=== PATIENT | female | born 1970 ===

== ENCOUNTER 2018-04-27 06:03 | Inpatient (IN) | payer MEDICARE, OTHER ==
[2018-04-27] VITALS (13 sets, daily range): BP systolic 87–131; BP diastolic 58–89
[~2018-04-27] VITALS: Ht 152.4 cm; Wt 50.3 kg
[~2018-04-27 06:03] MED LIST: Bacitracin 50000 Units Vial ONE; NeoSporin Gu Irrig 1ml Amp IRRIG ONE
[2018-04-27] MEDS ORDERED: TRAMADOL HCL50 MG ORAL (06:52)
[2018-04-27 06:59] LABS: ANION GAP 7 mmol/L (5-15); BLOOD UREA NITROGEN 13 mg/dL (7-18); CALCIUM 9.4 MG/DL (8.5-10.1); CARBON DIOXIDE 28 MMOL/L (21-32); CHLORIDE 102 MMOL/L (98-107); CREATININE 0.7 MG/DL (0.55-1.30); POTASSIUM 3.7 MMOL/L (3.5-5.1); SODIUM 137 MMOL/L (136-145)
[2018-04-27] MEDS ORDERED: Lidocaine 1% MPF 10mg/ml 5ml ONE (07:05)
[2018-04-27] MEDS ORDERED: Ropivacaine 5mg/ml Vial 30ml INJ ONE (07:05)
[2018-04-27] MEDS ORDERED: Propofol 200mg/20ml IV ONE (07:05)
[2018-04-27 07:10] LABS: EOSINOPHILS % (AUTO) 2.2 % (0.0-3.0); HEMATOCRIT 38.6 % (37.0-47.0); HEMOGLOBIN 13.5 G/DL (12.0-16.0); LYMPHOCYTES % (AUTO) 50.7 % (20.0-45.0); MEAN CORPUSCULAR VOLUME 81 FL (80-99); MONOCYTES % (AUTO) 6.6 % (1.0-10.0); NEUTROPHILS % (AUTO) 39.5 % (45.0-75.0); PLATELET COUNT 331 K/UL (150-450); RED BLOOD COUNT 4.73 M/UL (4.20-5.40); RED CELL DISTRIBUTION WIDTH 11.1 % (11.6-14.8); WHITE BLOOD COUNT 9.6 K/UL (4.8-10.8)
[2018-04-27] MEDS ORDERED: Midazolam 2mg/2ml Inj ONE (07:11)
[2018-04-27] MEDS ORDERED: fentaNYL 100 mcg/2 mL IV ONE (07:11)
[2018-04-27] MEDS ORDERED: Sterile Water Irrig 1000ml IRRIG ONE (08:00)
[2018-04-27] MEDS ORDERED: NS Irrig 1000ml ONE (08:00)
[2018-04-27] MEDS ORDERED: Ketorolac 30mg Inj ONE (08:00)
[2018-04-27] MEDS ORDERED: NS Irrig 2000ml IRRIG ONE (08:00)
[2018-04-27] MEDS ORDERED: LR 1000ml ONE (08:00)
[2018-04-27] MEDS ORDERED: Bupivacaine 0.5% Inj 30 ml vial INJ ONE (08:01)
--- NOTE | 2018-04-27 08:04 | Pre-Procedure Note/Attestation ---
Pre-Procedure Note/Attestation Complete Prior to Procedure Planned Procedure: left Procedure Narrative: left knee revision Indications for Procedure Pre-Operative Diagnosis: failed left knee Attestation I attest that I discussed the nature of the procedure; its benefits; risks and complications; and alternatives (and the risks and benefits of such alternatives ), prior to the procedure, with the patient (or the patient's legal traffic workforce representative). I attest that, if there was a reasonable possibility of needing a blood transfusion, the patient (or the patient's legal traffic workforce representative) was given the [facility] standardized written summary, pursuant to the [employer] Blood Safety Act ([place] Health and Safety Code # 1645, as amended). I attest that I re-evaluated the patient just prior to the surgery and that there has been no change in the patient's H&P, except as documented below: Randall Barboza MD Apr 27, 2018 08:04
[2018-04-27] MEDS ORDERED: Tranexamic Acid(Epistaxis Use) TOPIC ONE (08:30)
[2018-04-27] MEDS ORDERED: Tranexamic Acid 1,000 MG in NS 55 ML IVPB ONE (08:30)
--- NOTE | 2018-04-27 08:41 | General Progress Note ---
Progress Note Progress Note D?W PATIENT PLAN READY TO DO REVSION EXPAINED IF COMPONENTS LOOK GOOD MAY DO LINER EXCHANGE AND DEE WILL RULE OUT INFECTION INTRAOP WITH GRAL STAIN CULTURE PATIENT PREOP CLAIMS NERVE PAIN TO FOOT SINCE FIRST SURGERY EXPLAINED SURGERY AND RISKS INFECTION BLEEDING ANESTHETIC RISKS DVT PE FAILURE OF SURGERY FRACTURE NEUROVASCULAR DAMAGE PATIENT AGREED AND CONSENTED Randall Barboza MD Apr 27, 2018 08:41
[2018-04-27] MEDS ORDERED: ePHEDrine 50mg/ml Inj ONE (09:08)
[2018-04-27] MEDS ORDERED: Sodium Chloride 10ml vial INJ ONE ×2 (09:09→09:47)
[2018-04-27] MEDS ORDERED: LR 1000ml 1,000 ML IVLG SCH (09:38)
--- NOTE | 2018-04-27 09:38 | Anethesia Preoperative Eval ---
Anesthesia Pre-op PMH/ROS General Date of Evaluation: Apr 27, 2018 Time of Evaluation: 07:28 Anesthesiologist: Nando ASA Score: ASA 2 Mallampati Score Class I : Soft palate, uvula, fauces, pillars visible Class II: Soft palate, uvula, fauces visible Class III: Soft palate, base of uvula visible Class IV: Only hard plate visible Mallampati Classification: Class II Surgeon: Jabari Diagnosis: L knee malfunctioning arthroplasty, chronic pain Surgical Procedure: Revision of L TKA Anesthesia History: none Family History: no anesthesia problems Allergies: Coded Allergies: PENICILLINS (Verified Allergy, Unknown, 04/26/18) Medications: see eMAR Patient NPO?: Yes NPO Date: Apr 26, 2018 NPO Time: 2229 Past Medical History Cardiovascular: Denies: HTN, CAD, AK, valve dz, arrhythmia, other Pulmonary: Denies: asthma, COPD, CHERRY, other Gastrointestinal/Genitourinary: Reports: GERD - mild; Denies: CRI, ESRD, other Neurologic/Psychiatric: Reports: depression/anxiety, other - chronic pain; Denies: dementia, CVA, TIA Endocrine: Denies: DM, hypothyroidism, steroids, other HEENT: Denies: cataract (L), cataract (R), glaucoma, EMMONAK (L), EMMONAK (R), other Hematology/Immune: Denies: anemia, DVT, bleeding disorder, other Musculoskeletal/Integumentary: 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 Exam Physician Exam Last Vital Signs Date Time Temp Pulse Resp B/P (MAP) Pulse Ox O2 Delivery O2 Flow Rate FiO2 04/27/18 07:11 Room Air 04/27/18 06:36 97.5 67 18 131/85 (100) 100 Constitutional: NAD Neurologic: CN 2-12 intact Cardiovascular: RRR, no M/R/G Respiratory: CTA Gastrointestinal: S/NT/ND Airway Exam Mallampati Score: Class II MO: full Neck: flexible ROM: limited Teeth: intact Dentures: no upper, no lower Anesthesia Pre-op A/P Labs Hematology Test 04/27/18 06:30 White Blood Count 9.6 K/UL (4.8-10.8) Red Blood Count 4.73 M/UL (4.20-5.40) Hemoglobin 13.5 G/DL (12.0-16.0) Hematocrit 38.6 % (37.0-47.0) Mean Corpuscular Volume 81 FL (80-99) Mean Corpuscular Hemoglobin 28.5 PG (27.0-31.0) Mean Corpuscular Hemoglobin Concent 34.9 G/DL (32.0-36.0) Red Cell Distribution Width 11.1 % (11.6-14.8) L Platelet Count 331 K/UL (150-450) Mean Platelet Volume 7.2 FL (6.5-10.1) Neutrophils (%) (Auto) 39.5 % (45.0-75.0) L Lymphocytes (%) (Auto) 50.7 % (20.0-45.0) H Monocytes (%) (Auto) 6.6 % (1.0-10.0) Eosinophils (%) (Auto) 2.2 % (0.0-3.0) Basophils (%) (Auto) 1.0 % (0.0-2.0) Coagulation Test 04/27/18 06:30 Prothrombin Time 10.2 SEC (9.30-11.50) Prothromb Time International Ratio 1.0 (0.9-1.1) Activated Partial Thromboplast Time 28 SEC (23-33) Chemistry Test 04/27/18 06:30 Sodium Level 137 MMOL/L (136-145) Potassium Level 3.7 MMOL/L (3.5-5.1) Chloride Level 102 MMOL/L (98-107) Carbon Dioxide Level 28 MMOL/L (21-32) Anion Gap 7 mmol/L (5-15) Blood Urea Nitrogen 13 mg/dL (7-18) Creatinine 0.7 MG/DL (0.55-1.30) Estimat Glomerular Filtration Rate > 60 mL/min (>60) Glucose Level 92 MG/DL (74-106) Calcium Level 9.4 MG/DL (8.5-10.1) Urine Test Test 04/27/18 06:20 Urine HCG, Qualitative Negative (NEGATIVE) Studies Pre-op Studies: EKG - NSR Risk Assessment & Plan Assessment: ASA 2 Plan: All possible anesthetic options for this kind of surgery were discussed with patient in preop holding area and all related questions answered. Patient agreed and consented for following anesthetic plan: L femoral nerve block for postoperative pain control, SAB and GA with LMA for surgery, all invasive manipulations like nerve block and SAB will be done under moderate sedation with appropriate monitoring. Status Change Before Surgery: No Pre-Antibiotics Drug: Vancomycin 500 mg Given Within 1 Hr of Incision: Yes Time Given: 09:02 Abdi Collier MD Apr 27, 2018 09:38
[2018-04-27] MEDS ORDERED: Meperidine 50mg/ml Inj(FOR RIGORS ONLY) IV PRN (09:45)
[2018-04-27] MEDS ORDERED: DiphenhydrAMINE 50mg/ml Inj IVP PRN (09:45)
[2018-04-27] MEDS ORDERED: Midazolam 2mg/2ml Inj IVP PRN (09:45)
[2018-04-27] MEDS ORDERED: Ketorolac 30mg Inj IV PRN (09:45)
[2018-04-27] MEDS ORDERED: Morphine Sulfate 10mg/ml Inj ONE (09:45)
[2018-04-27] MEDS ORDERED: Metoclopramide 10mg/2ml Inj IVP PRN (09:45)
--- NOTE | 2018-04-27 10:39 | Diagnostic Imaging Report ---
Indication: Knee Pain 3 views of the left knee were obtained. Findings: Total knee arthroplasty demonstrated. The bones are osteopenic. Alignment and position appear unremarkable. There is no fracture. IMPRESSION: Left total knee arthroplasty noted
--- NOTE | 2018-04-27 11:33 | Immediate Post-Op Evaluation ---
Immediate Post-Op Evalulation Immediate Post-Op Evalulation Procedure: Revision of L TKA Date of Evaluation: Apr 27, 2018 Time of Evaluation: 11:32 IV Fluids: 2000 Blood Products: none Estimated Blood Loss: 150 Urinary Output: 560 Blood Pressure Systolic: 108 Blood Pressure Diastolic: 62 Pulse Rate: 76 Respiratory Rate: 20 O2 Sat by Pulse Oximetry: 99 Temperature (Fahrenheit): 97.4 Pain Score (1-10): 1 Nausea: No Vomiting: No Complications none Patient Status: reacts, patent, none Hydration Status: adequate Abdi Collier MD Apr 27, 2018 11:33
[2018-04-27] MEDS ORDERED: HYDROmorphone 1mg/ml Carpuject SUBQ PRN (13:00)
[2018-04-27] MEDS ORDERED: oxyCODONE 5mg IR tab ORAL PRN (13:00)
[2018-04-27] MEDS ORDERED: Morphine Sulfate 4mg/ml Inj (IV/IM USE ONLY) IM PRN (13:00)
--- NOTE | 2018-04-27 13:27 | Cardiology Progress Note ---
Assessment/Plan Assessment/Plan full note dictated dvt ppx [id number] Objective Last 24 Hour Vital Signs Date Time Temp Pulse Resp B/P (MAP) Pulse Ox O2 Delivery O2 Flow Rate FiO2 04/27/18 12:18 89 18 107/69 100 Nasal Cannula 3 04/27/18 12:13 94 18 106/71 100 Nasal Cannula 3 04/27/18 12:00 89 18 107/81 100 Nasal Cannula 3 04/27/18 11:45 89 15 97/84 100 Nasal Cannula 3 04/27/18 11:35 99 18 99/62 100 Simple Mask 6 04/27/18 11:33 76 20 99 04/27/18 11:26 97.3 102 20 108/74 100 Simple Mask 6 04/27/18 07:11 Room Air 04/27/18 06:36 97.5 67 18 131/85 (100) 100 Intake and Output 04/26/18 04/27/18 19:00 07:00 # Voids 1 Laboratory Tests Test 04/27/18 06:20 04/27/18 06:30 Urine HCG, Qualitative Negative (NEGATIVE) White Blood Count 9.6 K/UL (4.8-10.8) Red Blood Count 4.73 M/UL (4.20-5.40) Hemoglobin 13.5 G/DL (12.0-16.0) Hematocrit 38.6 % (37.0-47.0) Mean Corpuscular Volume 81 FL (80-99) Mean Corpuscular Hemoglobin 28.5 PG (27.0-31.0) Mean Corpuscular Hemoglobin Concent 34.9 G/DL (32.0-36.0) Red Cell Distribution Width 11.1 % (11.6-14.8) L Platelet Count 331 K/UL (150-450) Mean Platelet Volume 7.2 FL (6.5-10.1) Neutrophils (%) (Auto) 39.5 % (45.0-75.0) L Lymphocytes (%) (Auto) 50.7 % (20.0-45.0) H Monocytes (%) (Auto) 6.6 % (1.0-10.0) Eosinophils (%) (Auto) 2.2 % (0.0-3.0) Basophils (%) (Auto) 1.0 % (0.0-2.0) Prothrombin Time 10.2 SEC (9.30-11.50) Prothromb Time International Ratio 1.0 (0.9-1.1) Activated Partial Thromboplast Time 28 SEC (23-33) Sodium Level 137 MMOL/L (136-145) Potassium Level 3.7 MMOL/L (3.5-5.1) Chloride Level 102 MMOL/L (98-107) Carbon Dioxide Level 28 MMOL/L (21-32) Anion Gap 7 mmol/L (5-15) Blood Urea Nitrogen 13 mg/dL (7-18) Creatinine 0.7 MG/DL (0.55-1.30) Estimat Glomerular Filtration Rate > 60 mL/min (>60) Glucose Level 92 MG/DL (74-106) Calcium Level 9.4 MG/DL (8.5-10.1) Hero Perez MD Apr 27, 2018 13:27
[2018-04-27] MEDS: traMADol 50mg tab ORAL SCH ×2 (14:00→21:33)
[2018-04-27] MEDS ORDERED: Clindamycin 600mg 50 ML IV SCH (14:00)
[2018-04-27] MEDS: Hydromorphone 0.5mg/0.5ml inj IVP PRN ×3 (14:25→23:31)
[2018-04-27] MEDS: D5 1/2NS w/KCl 20mEq 1,000 ML IV SCH (14:27)
[2018-04-27] MEDS: Clindamycin 600mg 50 ML IV SCH ×2 (15:01→20:34)
[2018-04-27] MEDS: Morphine Sulfate 4mg/ml Inj (IV/IM USE ONLY) IV PRN ×2 (16:00→19:25)
[2018-04-27] MEDS: oxyCODONE 5mg IR tab ORAL PRN ×2 (17:04→20:34)
--- NOTE | 2018-04-27 19:15 | Consultation ---
DATE OF CONSULTATION: 04/27/2018 REASON FOR EVALUATION: Postoperative medical care. HISTORY OF PRESENT ILLNESS: This is a middle-aged female, who has undergone left knee surgery by Dr. Maria. The patient is being seeing postoperatively. She really does not have any chest pain or shortness of breath but she does have throat dryness and minimal dizziness. No nausea or vomiting. No palpitations. PAST MEDICAL HISTORY: Fairly unremarkable. PAST SURGICAL HISTORY: She has had knee surgery in 2015 initially. ALLERGIES: She is allergic to penicillin that causes to have rash. SOCIAL HISTORY: Never smoked, drank, or use drugs. Not . No kids. 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 FAMILY HISTORY: Negative for premature coronary artery disease. REVIEW OF SYSTEMS: GASTROINTESTINAL: Denies any nausea, vomiting, not had bowel movement yet. GENITOURINARY: Negative. CONSTITUTIONAL: She denies. PHYSICAL EXAMINATION: GENERAL: Shows to be middle-aged female, in no respiratory distress. NECK: Supple. No jugular venous distention. LUNGS: Clear to auscultation and percussion. CARDIAC: S1 is normal. S2 is normal. Regular rate and rhythm. No heaves, thrills, or gallops noted. ABDOMEN: Soft, nontender. Positive bowel sounds. EXTREMITIES: There is no clubbing, cyanosis, nor edema. The patient has pneumatic compression stockings in the right leg and left leg. LABORATORY AND DIAGNOSTIC DATA: Laboratory values none postop. All labs available are preop that was performed elsewhere. The patient's white count was 18, hemoglobin 13, and platelet count of 293. Glucose of 90, creatinine 0.7, sodium 139, potassium 4.3. Liver function tests were normal. Total cholesterol 259 with LDL of 177 and HDL of 59. ASSESSMENT AND PLAN: Status post revision knee surgery. The patient postoperatively is doing well. We will monitor for DVT prophylaxis with pneumatic compression stockings and low molecular weight heparin as okayed by Dr. Pedroza. We will start diet when she is adjusted per postoperative protocol for knee surgery. Incentive spirometer as indicated and pain management will be provided. Blood pressure will be monitored. So for her vital signs postoperatively appears to be adequate. Hero Perez M.D. DR: Servando JOB#: [id number] CC:
[2018-04-28] VITALS: BP 96/69
[2018-04-28] MEDS: Clindamycin 600mg 50 ML IV SCH ×2 (02:13→08:02)
[2018-04-28] MEDS: Morphine Sulfate 4mg/ml Inj (IV/IM USE ONLY) IV PRN ×4 (02:13→20:38)
[2018-04-28] MEDS: D5 1/2NS w/KCl 20mEq 1,000 ML IV SCH ×2 (02:21→16:06)
[2018-04-28 04:00] VITALS: BP 90/58
[2018-04-28] MEDS: Hydromorphone 0.5mg/0.5ml inj IVP PRN (04:45)
[2018-04-28] MEDS: traMADol 50mg tab ORAL SCH ×3 (06:03→21:56)
[2018-04-28] MEDS: oxyCODONE 5mg IR tab ORAL PRN ×4 (07:57→23:48)
[2018-04-28 08:00] VITALS: BP 131/73
[2018-04-28] MEDS: Enoxaparin 40mg Inj SUBQ SCH (09:00)
[2018-04-28 09:13] LABS: INR 1.1 (0.9-1.1)
[2018-04-28 09:17] LABS: BASOPHILS % (AUTO) 0.4 % (0.0-2.0); EOSINOPHILS % (AUTO) 0.2 % (0.0-3.0); HEMATOCRIT 28.7 % (37.0-47.0); HEMOGLOBIN 9.7 G/DL (12.0-16.0); LYMPHOCYTES % (AUTO) 13.4 % (20.0-45.0); MEAN CORPUSCULAR VOLUME 83 FL (80-99); MONOCYTES % (AUTO) 13.2 % (1.0-10.0); NEUTROPHILS % (AUTO) 72.9 % (45.0-75.0); PLATELET COUNT 213 K/UL (150-450); RED BLOOD COUNT 3.45 M/UL (4.20-5.40); RED CELL DISTRIBUTION WIDTH 11.1 % (11.6-14.8); WHITE BLOOD COUNT 9.1 K/UL (4.8-10.8)
--- NOTE | 2018-04-28 09:38 | 48 Hour Post Anesthesia Eval ---
Post Anesthesia Evaluation Procedure: Revision of L TKA Date of Evaluation: Apr 28, 2018 Time of Evaluation: 09:37 Blood Pressure Systolic: 98 0: 56 Pulse Rate: 72 Respiratory Rate: 20 Temperature (Fahrenheit): 97.6 O2 Sat by Pulse Oximetry: 98 Airway: patent Nausea: No Vomiting: No Pain Intensity: 4 Hydration Status: adequate Cardiopulmonary Status: stable Mental Status/LOC: patient returned to baseline Follow-up Care/Observations: n/a Post-Anesthesia Complications: none Follow-up care needed: N/A Abdi Collier MD Apr 28, 2018 09:38
[2018-04-28 12:23] VITALS: BP 119/75
[2018-04-28 16:00] VITALS: BP 119/78
[2018-04-28] MEDS ORDERED: Tubing IV Secondary IV ONE (17:02)
--- NOTE | 2018-04-28 19:30 | Consultation ---
DATE OF CONSULTATION: 04/28/2018 CONSULTING PHYSICIAN: Juan Ramon Olivas M.D. REFERRING PHYSICIAN: Randall Barboza M.D. REASON FOR CONSULTATION: Acute pain consult. HISTORY OF PRESENT ILLNESS: Dear Dr. Kruger: Thank you kindly for consulting me to evaluate and render an opinion as to how to proceed in the management of the patient's acute postoperative left knee pain status post left total knee arthroplasty revision surgery. The patient underwent revision surgery yesterday and complained of severe postoperative pain. She failed multiple trials of standard pain medications and you have consulted me to help with her pain control, which was refractory to standard postoperative pain medication recommendations. I saw the patient at the bedside. I performed a detailed history and physical examination. I discussed the case with the hospital pharmacist, So along with multiple nursing staff and devised the following analgesic plan to help this patient improve the pain complaints and advance with physical therapy. I reviewed the medical record in detail. PAST MEDICAL HISTORY: 1. Acute postoperative left knee pain status post revision left total knee arthroplasty by Dr. Barboza in April 2018. 2. Insomnia. PAST SURGICAL HISTORY: Previous knee surgery in 2015 and appendectomy. ALLERGIES: Penicillin causes a rash. MEDICATIONS AT HOME: Tramadol 50 mg b.i.d. p.r.n. SOCIAL HISTORY: Negative. REVIEW OF SYSTEMS: Per Dr. Perez. PHYSICAL EXAMINATION: VITAL SIGNS: Age 47, height 5 feet 0 inches, and weight 116 pounds. Body mass index 23. VITAL SIGNS: In the medical record. HEENT: Normocephalic and atraumatic. CHEST: Clear to auscultation. HEART: Regular rate and rhythm. ABDOMEN: Soft. EXTREMITIES: Left knee significant pain with range of motion. Left knee dressing appears clean and dry. NEUROLOGIC: Moving all extremities x4. Moving all toes x10. Detailed neurologic exam per Dr. Dayami Barboza. DIAGNOSTIC TESTING: Shows laboratory studies preoperatively from November 11, 2017 shows white count 8, hematocrit 39, and platelets 293,000. Sodium 139, potassium 4.2, chloride 102, bicarb 27, glucose 90, BUN 11, creatinine 0.7, and calcium 9.8. Total protein 7.1. Albumin 4.4. Total bilirubin 0.5. Alkaline phosphatase 62, AST 18, and ALT 10. TSH low normal. Preoperative 12-lead EKG shows normal sinus rhythm, ventricular rate 57 on 04/26/2018. Preoperative x-ray is in the medical record. IMPRESSION: 1. Acute postoperative left knee pain status post revision left total knee arthroplasty by Dr. Barboza in April 2018. 2. Insomnia. TREATMENT RECOMMENDATIONS: I have devised the following analgesic plan to help with this patient's pain control. I started the patient on intramuscular and subcutaneous doses of morphine Dilaudid to help reduce the risk for nausea problems. The patient has severe needle phobia. I, therefore, switched her doses to tramadol 50 mg around the clock for baseline analgesia. I have ordered a p.r.n. dose of morphine 3 mg intravenously every three hours p.r.n. for moderate pain. I have ordered oxycodone 10 mg orally every three hours p.r.n. for mild pain and I have ordered a breakthrough dose of Dilaudid 0.5 mg intravenously every three hours p.r.n. for severe breakthrough pain. I will defer DVT prophylaxis to the surgeon. I have encouraged aggressive incentive spirometer usage. I spoke with the physical therapist, Dr. La, who will assist the patient with her CPM device as well as with ambulation. I recommend that Kramer catheter be removed to encourage out of bed. Juan Ramon Olivas M.D. DR: KATHI JOB#: [id number] CC:
[2018-04-28 20:00] VITALS: BP 96/65
--- NOTE | 2018-04-28 22:17 | Cardiology Progress Note ---
Assessment/Plan Assessment/Plan Status post revision knee surgery. anemai she has refused lmwh refused PT tod ay but promises to do so tomorrow will d/w dr turcios if ok to use xarelto 10 mg daily if hgb stabl etomorrow will check cbc and orthostatic vital iuvf bolus Subjective Cardiovascular: Denies: chest pain, lightheadedness, palpitations Respiratory: Denies: shortness of breath Gastrointestinal/Abdominal: Denies: abdominal pain Genitourinary: Denies: burning Subjective sig knee pain Objective Last 24 Hour Vital Signs Date Time Temp Pulse Resp B/P (MAP) Pulse Ox O2 Delivery O2 Flow Rate FiO2 04/28/18 20:00 99.1 85 18 96/65 (75) 98 04/28/18 16:00 100.0 87 18 119/78 (92) 98 04/28/18 14:56 97.6 04/28/18 14:56 97.6 04/28/18 12:23 99.0 87 16 119/75 (90) 99 04/28/18 09:38 72 20 98 04/28/18 09:00 Room Air 04/28/18 08:00 98.9 85 18 131/73 (92) 94 04/28/18 05:15 100.0 04/28/18 04:00 100.0 92 20 90/58 (69) 94 04/28/18 00:00 98.7 90 18 96/69 (78) 96 General Appearance: no apparent distress Neck: supple Cardiovascular: normal rate, regular rhythm Respiratory/Chest: lungs clear, normal breath sounds Abdomen: normal bowel sounds, non tender, soft Extremities: no swelling Intake and Output 04/27/18 04/28/18 19:00 07:00 Intake Total 2612.5 ml 625 ml Output Total 1660 ml 500 ml Balance 952.5 ml 125 ml Intake Oral 300 ml 400 ml IV Total 2312.5 ml 225 ml Output Urine Total 1510 ml 500 ml Estimated Blood Loss 150 ml Laboratory Tests Test 04/28/18 08:20 White Blood Count 9.1 K/UL (4.8-10.8) Red Blood Count 3.45 M/UL (4.20-5.40) L Hemoglobin 9.7 G/DL (12.0-16.0) L Hematocrit 28.7 % (37.0-47.0) L Mean Corpuscular Volume 83 FL (80-99) Mean Corpuscular Hemoglobin 28.3 PG (27.0-31.0) Mean Corpuscular Hemoglobin Concent 33.9 G/DL (32.0-36.0) Red Cell Distribution Width 11.1 % (11.6-14.8) L Platelet Count 213 K/UL (150-450) Mean Platelet Volume 7.9 FL (6.5-10.1) Neutrophils (%) (Auto) 72.9 % (45.0-75.0) Lymphocytes (%) (Auto) 13.4 % (20.0-45.0) L Monocytes (%) (Auto) 13.2 % (1.0-10.0) H Eosinophils (%) (Auto) 0.2 % (0.0-3.0) Basophils (%) (Auto) 0.4 % (0.0-2.0) Prothrombin Time 11.4 SEC (9.30-11.50) Prothromb Time International Ratio 1.1 (0.9-1.1) Microbiology Date/Time Source Procedure Growth Status 04/27/18 09:06 Knee Left Gram Stain - Final Resulted 04/27/18 09:06 Knee Left Aerobic Culture - Preliminary NO GROWTH AFTER 24 HOURS Resulted Hero Perez MD Apr 28, 2018 22:17
[2018-04-29] VITALS (7 sets, daily range): BP systolic 102–113; BP diastolic 62–79
[2018-04-29] MEDS: Morphine Sulfate 4mg/ml Inj (IV/IM USE ONLY) IV PRN ×4 (01:55→21:02)
[2018-04-29] MEDS: oxyCODONE 5mg IR tab ORAL PRN ×3 (03:46→18:09)
[2018-04-29] MEDS: D5 1/2NS w/KCl 20mEq 1,000 ML IV SCH (05:44)
[2018-04-29] MEDS: traMADol 50mg tab ORAL SCH ×3 (06:21→22:07)
[2018-04-29 07:33] LABS: BASOPHILS % (AUTO) 0.5 % (0.0-2.0); HEMATOCRIT 27.1 % (37.0-47.0); LYMPHOCYTES % (AUTO) 17.8 % (20.0-45.0); MEAN CORPUSCULAR VOLUME 84 FL (80-99); MONOCYTES % (AUTO) 10.2 % (1.0-10.0); NEUTROPHILS % (AUTO) 70.6 % (45.0-75.0); PLATELET COUNT 180 K/UL (150-450); RED BLOOD COUNT 3.25 M/UL (4.20-5.40); RED CELL DISTRIBUTION WIDTH 11.2 % (11.6-14.8)
[2018-04-29 07:56] LABS: ALANINE AMINOTRANSFERASE 13 U/L (12-78); ALBUMIN 2.7 G/DL (3.4-5.0); ALBUMIN/GLOBULIN RATIO 0.7 (1.0-2.7); ALKALINE PHOSPHATASE 62 U/L (46-116); ANION GAP 8 mmol/L (5-15); ASPARTATE AMINO TRANSFERASE 14 U/L (15-37); BILIRUBIN,TOTAL 0.4 MG/DL (0.2-1.0); BLOOD UREA NITROGEN 3 mg/dL (7-18); CALCIUM 8.7 MG/DL (8.5-10.1); CARBON DIOXIDE 28 MMOL/L (21-32); CHLORIDE 102 MMOL/L (98-107); CREATININE 0.7 MG/DL (0.55-1.30); POTASSIUM 3.7 MMOL/L (3.5-5.1); SODIUM 138 MMOL/L (136-145)
[2018-04-29] MEDS: Enoxaparin 40mg Inj SUBQ SCH (09:00)
[2018-04-29] MEDS: Sennosides 8.6mg tab ORAL SCH ×2 (09:00→18:00)
[2018-04-29] MEDS ORDERED: Docusate 100mg/10ml Liq NG SCH (09:00)
[2018-04-29] MEDS ORDERED: Milk of Magnesia 30ml Ud ORAL PRN (09:00)
[2018-04-29] MEDS: Docusate 100mg/10ml Liq ORAL SCH ×2 (09:00→18:00)
--- NOTE | 2018-04-29 18:15 | Progress Note ---
DATE: 04/29/2018 ACUTE PAIN MANAGEMENT PHYSICIAN PROGRESS NOTE MEDICATIONS: Medication administration record reviewed. Medications include oxycodone, Zofran, morphine, Dilaudid, Lovenox, Benadryl, and Tylenol. LABORATORY DATA: Laboratory studies from this morning, 04/29/2018, shows white count 8, hematocrit 27, and platelets 180,000. Sodium 138, potassium 3.7, chloride 102, bicarb 28, BUN 3, creatinine 0.7, and glucose 140. Calcium 8.7. Total bilirubin 0.4. AST 14, ALT 13, and alkaline phosphatase 62. Total protein 6.5. Albumin 2.7. INR 1.0. I saw the patient at the bedside with the nurse, RN, Jonas. I discussed the case with the community theater actor, Dr. Perez, who has been following the patient closely with Dr. Barboza. I spoke with the physical therapist again, Dr. La. The patient agrees to work with physical therapy later today. She has been dosed serially with the p.r.n. morphine, the p.r.n. Dilaudid, and the oral oxycodone. This regimen seems to be rather affective. She will continue her scheduled Ultram around the clock 50 mg every 8 hours as well. I will maintain these current doses and continue spacing out the medications at least 60 minutes apart somewhat for safety concerns. I did leave a prescription for 50 tablets of Percocet 10/325 for outpatient usage. The patient has been refusing the Lovenox injections. Dr. Perez is discussing with the surgeon if oral Xarelto will be permissible. I did tell the patient that she must be on chemical anticoagulation due to the nature of the surgery and her high risk for deep venous thrombosis and pulmonary embolism postoperative complications. The patient is tolerating advancing diet. Therefore, I will Hep-Lock her IV fluids to encourage movement in and out of bed. She denies any nausea symptoms. She denies shortness of breath or chest pain. I will place her on b.i.d. Colace and Senokot to help promote bowel regularity with her high opioid usage. I also will place her on Pepcid b.i.d. with the p.r.n. dose of Maalox for GI ulcer prophylaxis and GERD exacerbation symptoms p.r.n. respectively. Juan Ramon Olivas M.D. DR: KATHI JOB#: [id number] CC:
[2018-04-29] MEDS ORDERED: Iron Sucrose 100 MG in NS 55 ML IVPB SCH (21:00)
--- NOTE | 2018-04-29 21:36 | Cardiology Progress Note ---
Assessment/Plan Assessment/Plan Status post revision knee surgery. anemai she has refused lmwh d/w sdr karolina will start on xarelto got PT walked anemia midl drop will repat in am start iron to allopw quicker replacment of rbc home soon Subjective Cardiovascular: Denies: chest pain, lightheadedness, palpitations Respiratory: Denies: shortness of breath Gastrointestinal/Abdominal: Denies: abdominal pain Genitourinary: Denies: burning Subjective sig knee pain Objective Last 24 Hour Vital Signs Date Time Temp Pulse Resp B/P (MAP) Pulse Ox O2 Delivery O2 Flow Rate FiO2 04/29/18 21:11 99.2 89 18 113/62 (79) 95 04/29/18 16:25 100.3 88 16 107/79 (88) 94 04/29/18 15:33 100.3 04/29/18 14:40 100.1 04/29/18 12:00 100.1 88 18 102/67 (79) 96 04/29/18 09:00 Room Air 04/29/18 08:26 99.2 86 18 105/63 (77) 96 04/29/18 06:13 99.8 04/29/18 04:00 101.0 95 17 108/73 (85) 96 04/29/18 00:00 99.3 91 20 111/75 (87) 95 General Appearance: no apparent distress, alert Neck: supple Cardiovascular: normal rate, regular rhythm Respiratory/Chest: lungs clear Abdomen: normal bowel sounds, non tender, soft Extremities: no swelling Intake and Output 04/28/18 04/29/18 19:00 07:00 Intake Total 975 ml 1325 ml Output Total 1700 ml 1475 ml Balance -725 ml -150 ml Intake Oral 500 ml IV Total 975 ml 825 ml Output Urine Total 1700 ml 1475 ml # Voids 2 Laboratory Tests Test 04/29/18 06:20 White Blood Count 8.0 K/UL (4.8-10.8) Red Blood Count 3.25 M/UL (4.20-5.40) L Hemoglobin 9.0 G/DL (12.0-16.0) L Hematocrit 27.1 % (37.0-47.0) L Mean Corpuscular Volume 84 FL (80-99) Mean Corpuscular Hemoglobin 27.9 PG (27.0-31.0) Mean Corpuscular Hemoglobin Concent 33.3 G/DL (32.0-36.0) Red Cell Distribution Width 11.2 % (11.6-14.8) L Platelet Count 180 K/UL (150-450) Mean Platelet Volume 7.3 FL (6.5-10.1) Neutrophils (%) (Auto) 70.6 % (45.0-75.0) Lymphocytes (%) (Auto) 17.8 % (20.0-45.0) L Monocytes (%) (Auto) 10.2 % (1.0-10.0) H Eosinophils (%) (Auto) 1.0 % (0.0-3.0) Basophils (%) (Auto) 0.5 % (0.0-2.0) Prothrombin Time 10.8 SEC (9.30-11.50) Prothromb Time International Ratio 1.0 (0.9-1.1) Sodium Level 138 MMOL/L (136-145) Potassium Level 3.7 MMOL/L (3.5-5.1) Chloride Level 102 MMOL/L (98-107) Carbon Dioxide Level 28 MMOL/L (21-32) Anion Gap 8 mmol/L (5-15) Blood Urea Nitrogen 3 mg/dL (7-18) L Creatinine 0.7 MG/DL (0.55-1.30) Estimat Glomerular Filtration Rate > 60 mL/min (>60) Glucose Level 140 MG/DL (74-106) H Calcium Level 8.7 MG/DL (8.5-10.1) Total Bilirubin 0.4 MG/DL (0.2-1.0) Aspartate Amino Transf (AST/SGOT) 14 U/L (15-37) L Alanine Aminotransferase (ALT/SGPT) 13 U/L (12-78) Alkaline Phosphatase 62 U/L (46-116) Total Protein 6.5 G/DL (6.4-8.2) Albumin 2.7 G/DL (3.4-5.0) L Globulin 3.8 g/dL Albumin/Globulin Ratio 0.7 (1.0-2.7) L Microbiology Date/Time Source Procedure Growth Status 04/27/18 06:30 Nasal Nares MRSA Culture - Final NO METHICILLIN RESISTANT STAPH AUREUS... Complete 04/27/18 09:06 Knee Left Gram Stain - Final Resulted 04/27/18 09:06 Knee Left Aerobic Culture - Preliminary NO GROWTH AFTER 48 HOURS Resulted 04/27/18 09:06 Knee Left Anaerobic Culture - Preliminary NO GROWTH AFTER 48 HOURS Resulted Hero Perez MD Apr 29, 2018 21:36
[2018-04-29] MEDS ORDERED: Xarelto 10mg tab ORAL SCH (21:45)
[2018-04-29] MEDS: Iron Sucrose 100 MG in NS 55 ML IV SCH (23:55)
[2018-04-30] VITALS: BP 90/57
[2018-04-30] MEDS: oxyCODONE 5mg IR tab ORAL PRN ×4 (01:31→21:06)
[2018-04-30] MEDS: Morphine Sulfate 4mg/ml Inj (IV/IM USE ONLY) IV PRN ×2 (02:55→09:20)
[2018-04-30 04:00] VITALS: BP 95/50
[2018-04-30] MEDS: traMADol 50mg tab ORAL SCH ×3 (06:04→22:08)
[2018-04-30 07:46] LABS: INR 0.9 (0.9-1.1)
[2018-04-30 08:00] VITALS: BP 96/60
[2018-04-30] MEDS: Sennosides 8.6mg tab ORAL SCH ×2 (09:19→17:53)
[2018-04-30] MEDS: Docusate 100mg/10ml Liq ORAL SCH ×2 (09:19→17:54)
[2018-04-30 12:00] VITALS: BP 95/62
[2018-04-30 16:00] VITALS: BP 98/58
[2018-04-30] MEDS ORDERED: NS 275ml ONE (17:40)
[2018-04-30 20:00] VITALS: BP 111/69
--- NOTE | 2018-04-30 20:16 | Cardiology Progress Note ---
Assessment/Plan Assessment/Plan Status post revision knee surgery. anemai she has refused lmwh now on xarelto got PT walked anemia midl drop will repat in am on iv iron to allopw quicker replacment of rbc homemonday pt indicated no help at home until thursday not using cpm Subjective Cardiovascular: Denies: chest pain, irregular heart rate, lightheadedness Respiratory: Denies: shortness of breath Gastrointestinal/Abdominal: Reports: constipated; Denies: abdominal pain Genitourinary: Denies: burning Subjective sig knee pain Objective Last 24 Hour Vital Signs Date Time Temp Pulse Resp B/P (MAP) Pulse Ox O2 Delivery O2 Flow Rate FiO2 04/30/18 16:00 98.8 88 18 98/58 (71) 100 04/30/18 12:00 98.6 68 17 95/62 (73) 98 04/30/18 09:00 Room Air 04/30/18 08:00 98.7 82 18 96/60 (72) 95 04/30/18 04:00 99.2 87 18 95/50 (65) 95 04/30/18 00:00 98.9 81 18 90/57 (68) 97 04/29/18 21:11 99.2 89 18 113/62 (79) 95 04/29/18 21:00 Room Air General Appearance: no apparent distress, alert Neck: supple Cardiovascular: normal rate, regular rhythm Respiratory/Chest: lungs clear Abdomen: normal bowel sounds, non tender, soft Extremities: no swelling Intake and Output 04/29/18 04/30/18 19:00 07:00 Intake Total 240 ml 480 ml Balance 240 ml 480 ml Intake Oral 480 ml Other 240 ml # Voids 5 Laboratory Tests Test 04/30/18 07:22 Prothrombin Time 10.0 SEC (9.30-11.50) Prothromb Time International Ratio 0.9 (0.9-1.1) Hero Perez MD Apr 30, 2018 20:16
[2018-04-30] MEDS: Xarelto 10mg tab ORAL SCH (21:05)
[2018-04-30] MEDS: Iron Sucrose 100 MG in NS 55 ML IV SCH (21:06)
[2018-05-01] VITALS: BP 88/56
[2018-05-01] MEDS: Morphine Sulfate 4mg/ml Inj (IV/IM USE ONLY) IV PRN ×5 (00:07→22:28)
[2018-05-01 04:00] VITALS: BP 101/63
[2018-05-01] MEDS: oxyCODONE 5mg IR tab ORAL PRN ×3 (04:05→18:36)
[2018-05-01] MEDS: traMADol 50mg tab ORAL SCH ×3 (06:00→22:00)
[2018-05-01 06:24] LABS: BASOPHILS % (AUTO) 0.6 % (0.0-2.0); EOSINOPHILS % (AUTO) 4.7 % (0.0-3.0); HEMOGLOBIN 8.4 G/DL (12.0-16.0); MEAN CORPUSCULAR VOLUME 83 FL (80-99); NEUTROPHILS % (AUTO) 51.8 % (45.0-75.0); PLATELET COUNT 237 K/UL (150-450); RED BLOOD COUNT 3.03 M/UL (4.20-5.40); RED CELL DISTRIBUTION WIDTH 10.8 % (11.6-14.8); WHITE BLOOD COUNT 6.6 K/UL (4.8-10.8)
[2018-05-01 08:00] VITALS: BP_SYST 118; BP_SYST 128; BP_SYST 96; BP_DIAS 68; BP_DIAS 70; BP_DIAS 73
[2018-05-01] MEDS: Sennosides 8.6mg tab ORAL SCH ×2 (08:39→17:37)
[2018-05-01] MEDS: Docusate 100mg/10ml Liq ORAL SCH ×2 (08:40→17:37)
[2018-05-01 12:00] VITALS: BP_SYST 92
--- NOTE | 2018-05-01 15:21 | Cardiology Progress Note ---
Assessment/Plan Assessment/Plan Status post revision knee surgery. anemai she has refused lmwh now on xarelto got PT walked anemiahgb lower over 2 days on iv iron to allopw quicker replacment of rbc home thursday pt indicated no help at home until thursday now in cpm Subjective Cardiovascular: Denies: chest pain, lightheadedness, palpitations Respiratory: Denies: shortness of breath Gastrointestinal/Abdominal: Denies: abdominal pain Genitourinary: Denies: burning Subjective sig knee pain Objective Last 24 Hour Vital Signs Date Time Temp Pulse Resp B/P (MAP) Pulse Ox O2 Delivery O2 Flow Rate FiO2 05/01/18 14:00 99.4 05/01/18 12:00 99.4 83 18 92/ 99 05/01/18 11:33 98.9 05/01/18 09:00 Room Air 05/01/18 08:00 92 19 118/70 (86) 99 05/01/18 08:00 98.9 84 19 96/68 (77) 97 05/01/18 08:00 92 18 128/73 (91) 100 05/01/18 04:00 99.3 81 18 101/63 (76) 97 05/01/18 00:00 99.1 81 18 88/56 (67) 97 04/30/18 21:00 Room Air 04/30/18 20:00 99.2 90 18 111/69 (83) 99 04/30/18 16:00 98.8 88 18 98/58 (71) 100 General Appearance: no apparent distress, alert Neck: supple Cardiovascular: normal rate Respiratory/Chest: lungs clear, normal breath sounds Abdomen: normal bowel sounds, non tender, soft Extremities: trace edema - left leg in cpm machine Intake and Output 04/30/18 05/01/18 19:00 07:00 Intake Total 700 ml 250 ml Balance 700 ml 250 ml Other 700 ml 250 ml # Voids 4 3 Laboratory Tests Test 05/01/18 05:54 White Blood Count 6.6 K/UL (4.8-10.8) Red Blood Count 3.03 M/UL (4.20-5.40) L Hemoglobin 8.4 G/DL (12.0-16.0) L Hematocrit 25.0 % (37.0-47.0) L Mean Corpuscular Volume 83 FL (80-99) Mean Corpuscular Hemoglobin 27.8 PG (27.0-31.0) Mean Corpuscular Hemoglobin Concent 33.6 G/DL (32.0-36.0) Red Cell Distribution Width 10.8 % (11.6-14.8) L Platelet Count 237 K/UL (150-450) Mean Platelet Volume 7.4 FL (6.5-10.1) Neutrophils (%) (Auto) 51.8 % (45.0-75.0) Lymphocytes (%) (Auto) 32.0 % (20.0-45.0) Monocytes (%) (Auto) 11.0 % (1.0-10.0) H Eosinophils (%) (Auto) 4.7 % (0.0-3.0) H Basophils (%) (Auto) 0.6 % (0.0-2.0) Prothrombin Time 10.7 SEC (9.30-11.50) Prothromb Time International Ratio 1.0 (0.9-1.1) Hero Perez MD May 01, 2018 15:21
[2018-05-01 16:00] VITALS: BP 92/60
[2018-05-01 20:00] VITALS: BP 95/65
[2018-05-01] MEDS: Xarelto 10mg tab ORAL SCH (20:47)
[2018-05-01] MEDS: Iron Sucrose 100 MG in NS 55 ML IV SCH (20:47)
[2018-05-02] VITALS: BP 98/61
[2018-05-02] MEDS: oxyCODONE 5mg IR tab ORAL PRN ×3 (00:23→20:05)
[2018-05-02] MEDS: Morphine Sulfate 4mg/ml Inj (IV/IM USE ONLY) IV PRN ×4 (03:27→23:52)
[2018-05-02 04:00] VITALS: BP 99/63
[2018-05-02] MEDS: traMADol 50mg tab ORAL SCH ×3 (06:00→22:05)
[2018-05-02 08:00] VITALS: BP_SYST 113; BP_SYST 91; BP_SYST 99; BP_DIAS 58; BP_DIAS 68; BP_DIAS 80
[2018-05-02] MEDS: Sennosides 8.6mg tab ORAL SCH ×2 (08:37→17:24)
[2018-05-02] MEDS: Docusate 100mg/10ml Liq ORAL SCH ×2 (08:38→17:24)
[2018-05-02 12:00] VITALS: BP 115/67
--- NOTE | 2018-05-02 15:18 | Cardiology Progress Note ---
Assessment/Plan Assessment/Plan Status post revision knee surgery. anemai dark urine she has refused lmwh now on xarelto got PT walked anemia hgb lower s/p 2 doses of iv iron will dc for now walked is constipated will check u/a and c/s check labs see if bloody Subjective Cardiovascular: Reports: lightheadedness; Denies: chest pain Respiratory: Denies: shortness of breath Gastrointestinal/Abdominal: Denies: abdominal pain Genitourinary: Reports: hematuria; Denies: burning Subjective sig knee pain Objective Last 24 Hour Vital Signs Date Time Temp Pulse Resp B/P (MAP) Pulse Ox O2 Delivery O2 Flow Rate FiO2 05/02/18 13:56 98.8 05/02/18 12:00 98.8 87 17 115/67 (83) 98 05/02/18 08:15 Room Air 05/02/18 08:00 81 18 113/80 (91) 05/02/18 08:00 83 18 99/68 (78) 05/02/18 08:00 99.5 61 19 91/58 (69) 96 05/02/18 07:56 98.4 05/02/18 04:00 98.4 76 16 99/63 (75) 98 05/02/18 00:00 98.8 76 18 98/61 (73) 98 05/01/18 21:00 Room Air 05/01/18 20:00 98.9 62 18 95/65 (75) 99 05/01/18 16:00 99.1 64 18 92/60 (71) 99 General Appearance: alert Neck: supple Cardiovascular: normal rate, regular rhythm Respiratory/Chest: lungs clear, normal breath sounds Abdomen: normal bowel sounds, non tender, soft Extremities: no swelling Intake and Output 05/01/18 05/02/18 18:59 06:59 Intake Total 1800 ml 425 ml Balance 1800 ml 425 ml Other 1800 ml 425 ml # Voids 4 4 Hero Perez MD May 02, 2018 15:18
[2018-05-02 16:00] VITALS: BP 84/62
[2018-05-02 16:35] LABS: APPEARANCE,URINE SLIGHTLY CLOUDY; BILIRUBIN, URINE NEGATIVE (NEGATIVE); COLOR,URINE PALE YELLOW; GLUCOSE, URINE (UA) NEGATIVE (NEGATIVE); KETONES,URINE NEGATIVE (NEGATIVE); LEUKOCYTE ESTERASE ,URINE 1+ (NEGATIVE); NITRITE,URINE NEGATIVE (NEGATIVE); PH,URINE 8 (4.5-8.0); PROTEIN,URINE NEGATIVE (NEGATIVE); UROBILINOGEN,URINE NORMAL MG/DL (0.0-1.0)
[2018-05-02 20:00] VITALS: BP 125/74
[2018-05-02] MEDS: Xarelto 10mg tab ORAL SCH (20:48)
[2018-05-03] VITALS: BP 108/69
[2018-05-03 04:00] VITALS: BP 110/91
[2018-05-03] MEDS: oxyCODONE 5mg IR tab ORAL PRN ×3 (04:30→14:15)
[2018-05-03] MEDS: traMADol 50mg tab ORAL SCH ×2 (06:00→14:00)
[2018-05-03] MEDS: Morphine Sulfate 4mg/ml Inj (IV/IM USE ONLY) IV PRN (06:19)
[2018-05-03 08:00] VITALS: BP 87/59
[2018-05-03] MEDS: Docusate 100mg/10ml Liq ORAL SCH (09:00)
[2018-05-03 09:12] LABS: BASOPHILS % (AUTO) 1.2 % (0.0-2.0); EOSINOPHILS % (AUTO) 3.9 % (0.0-3.0); HEMATOCRIT 26.8 % (37.0-47.0); HEMOGLOBIN 9.2 G/DL (12.0-16.0); LYMPHOCYTES % (AUTO) 42.7 % (20.0-45.0); MEAN CORPUSCULAR VOLUME 83 FL (80-99); MONOCYTES % (AUTO) 9.5 % (1.0-10.0); NEUTROPHILS % (AUTO) 42.7 % (45.0-75.0); PLATELET COUNT 306 K/UL (150-450); RED BLOOD COUNT 3.22 M/UL (4.20-5.40); RED CELL DISTRIBUTION WIDTH 10.9 % (11.6-14.8); WHITE BLOOD COUNT 8.5 K/UL (4.8-10.8)
[2018-05-03 09:14] LABS: ALANINE AMINOTRANSFERASE 13 U/L (12-78); ALBUMIN/GLOBULIN RATIO 0.7 (1.0-2.7); ALKALINE PHOSPHATASE 72 U/L (46-116); ANION GAP 7 mmol/L (5-15); ASPARTATE AMINO TRANSFERASE 15 U/L (15-37); BILIRUBIN,TOTAL 0.3 MG/DL (0.2-1.0); BLOOD UREA NITROGEN 5 mg/dL (7-18); CALCIUM 9.5 MG/DL (8.5-10.1); CARBON DIOXIDE 30 MMOL/L (21-32); CHLORIDE 102 MMOL/L (98-107); CREATININE 0.7 MG/DL (0.55-1.30); POTASSIUM 4.6 MMOL/L (3.5-5.1); SODIUM 139 MMOL/L (136-145)
[2018-05-03] MEDS: Sennosides 8.6mg tab ORAL SCH (10:12)
[2018-05-03 12:00] VITALS: BP 100/59
[2018-05-03 16:00] VITALS: BP 127/64
[2018-05-03] MEDS ORDERED: PERCOCET 10-321 EACH ORAL (16:31)
--- NOTE | 2018-05-03 17:00 | Operative Note - Dictated ---
DATE OF OPERATION: 04/27/2018 NOTE: POOR AUDIO SURGEON: Randall Barboza M.D. BOBBIN CLEANER HAND: Unknown. REPRODUCTION MACHINE LOADER: None. PREOPERATIVE DIAGNOSIS: Failed left knee replacement. POSTOPERATIVE DIAGNOSIS: Failed left knee replacement. PROCEDURE: Revision of left knee, modifier 22 secondary to difficulty. PREOPERATIVE NOTE: This is a patient who has a for the past five years degrees. She has severe pain. We will go on preliminary workup, infection, bleeding in surgery, amputation . OPERATIVE NOTE: Under the benefit of endotracheal intubation and general anesthetic, the patient's knee was prepped and draped in the appropriate manner. A midline incision was made, incised through subcutaneous tissue through the medial retinaculum. Once it was done, extensive scar removal was made. The polyethylene was . I removed the tibia. He because of difficulty. I used the [employer] equipment to remove these implants. The implants were improperly placed. We proceeded to work on the tibial tubercle, on the medial side selecting the mechanical axis, accepting this with an offset stem, 100 x 11. This was deemed to be perfect, based on the prior surgeon's error and fresh cut using an 11 mm michael with a 6-degree valgus alignment making my touch up cut and bone was locked. An 11 x 100 stem box cut was made the [facility]. They placed the trialed in, 10 mm seems to be perfect. We had full extension, full flexion, full medial lateral stability throughout all ranges of motion with no hip flexion. I then irrigated the wound copiously. implants with the augments on the medial side of 10 mm placed it in. We have cemented in. Cement was hardened and we remove the excess cement, placed the 10 mm polyethylene in with full range of motion and full stability before. A 10 mm was accepted debris. We irrigated the wound copiously, closing the retinaculum 2-0 Vicryl, skin with abram. The patient will be minimal blood loss. There were no complications. Bal Carmelita Barboza DR: ADRIANA JOB#: [id number] CC:
[2018-05-03] MEDS ORDERED: NS 500ML ONE (17:03)
--- NOTE | 2018-05-05 14:03 | Discharge Summary ---
Discharge Summary Hospital Course Date of Admission Apr 27, 2018 at 06:03 Date of Discharge May 03, 2018 at 17:04 Admitting Diagnosis failed left knee arthroplasty Reason for Hospitalization: elective surgery DESMOND Pérez is a 47 year old female who was admitted on Apr 27, 2018 at 06:03 for Left Knee Stiffness Consultations dr Perez - IM/cardio dr Olivas - pain specialist Procedures s/p 04/27/[address] Barboza Revision of left total knee arthroplasty with , modifier 22 secondary to difficulty. Hospital Course s/p surgery course of recovery uneventful initially IV fluids s/p perioperative antibiotic gram stain and culture from left knee both negative neurovascular status closely monitored, stable incision clean dry and intact pain management addressed pain specialist followed; pain controlled incentive spirometry encouraged while in the bed q 1 hr x 10 patient was not using consistently CPM as ordered , reinforced compliance DVT prophylaxis with SCD and Lovenox provided patient further declined Lovenox started on Xarelto noted hemoglobin with trend down patient was started on IV Venofer while in hospital hemoglobin stable, no further trend down, no evidence of bleeding low grade fever, no leukocytosis, urine dark. 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 I was not involved in the patient management Maria L Marie NP May 05, 2018 14:03
== END 2018-05-03 17:04 | DRG 468 ==
LOC: SDSOVERFLO 06:03 → 3E 12:45
PROC: 0SWD0JZ Revision of Synthetic Substitute in Left Knee Joint, Open Approach (ICD-10-PCS; principal; 2018-04-27 07:30)
DX: T84.023A Instability of internal left knee prosthesis, initial encounter (principal); G89.18 Other acute postprocedural pain; G47.00 Insomnia, unspecified; D64.9 Anemia, unspecified; K59.00 Constipation, unspecified
CPT/HCPCS: 36415; 80048; 80053; 81001; 81025; 85025; 85610; 85730; 86850; 86900; 86901; 86920; 87070; 87075; 87081; 87086; 87205; 94003; 94150; J2250; J2405; S0077